=== PATIENT | male | born 1970 | race Caucasian/White ===

== ENCOUNTER 2023-05-23 12:17 | Outpatient (CLI) | payer OTHER ==
[~2023-05-23] VITALS: Ht 177.8 cm; Wt 113.4 kg
[2023-05-23 14:21] LABS: ABG O2 SAT% ESTIMATE 94.3 % (94.0-100.0); ALLEN'S TEST POSITIVE (P); BLOOD GAS BASE EXCESS 3.9 mmol/L (-3.0-3.0); BLOOD GAS HCO3 21.2 mmol/L (21.0-27.0); BLOOD GAS PCO2 17.9 mmHg (32.0-45.0); BLOOD GAS PH 7.692 (7.350-7.450)
== END 2023-05-23 19:10 | disposition home or self-care (01) ==
LOC: SLB 12:17
PROVIDERS: ATTEND General Practice
DX: R05.8 Other specified cough (principal)
CPT/HCPCS: 82803